=== PATIENT | male | born 1965 | race Caucasian/White ===

== ENCOUNTER → 2016-12-04 | Outpatient (CLI) | payer OTHER ==
[~2016-12-04] MED LIST: PRINIVIL20 MG PO
[2016-12-04 10:26] LABS: BUN 11 mg/dL (7-18); GFR (ESTIMATED) 79 ML/MIN (>60)
== END ==
LOC: LAB 09:23
PROVIDERS: Physician Assistant
DX: R23.2 Flushing (principal); R73.01 Impaired fasting glucose; Z13.220 Encounter for screening for lipoid disorders